=== PATIENT | female | born 1995 | race Caucasian/White ===

== ENCOUNTER 2021-09-05 09:30 | Inpatient (IN) | payer OTHER, SELFPAY ==
[2021-09-05] VITALS (73 sets, daily range): BP systolic 94–137; BP diastolic 39–90; PULSE 62–143; RESP 12–20; TEMP 36.2–37.1; O2SAT 99–100; BMI 38.5
--- NOTE | 2021-09-05 05:02 | LDADM ---
This patient, Nick Vieyra, was admitted to Labor/Delivery/Recovery 106 on 09/05/21 at 05:02. Plans for labor, pain management and were discussed with patient. Patient/family oriented to hospital policies and general routines including ID bracelet, bed and alarms, visiting hours, pain management, procedures, bathroom and other care routines, personal items, smoking policy, room service/diet and guest tray routines, security routines, and visiting hours. Patient/Family are encouraged to report perceived risks to care and to ask questions if they do not understand what they are told or what they should do. See OBIX for further documentation.
[2021-09-05 05:50] LABS: Basophils Percent Auto 0.1 % (0.2-1.2); Eosinophils Percent Auto 0.3 % (0-4.4); Hematocrit 34.8 % (37.0-47.0); Hemoglobin 11.7 g/dL (12.0-15.0); Immature Granulocyte Absolute 0.04 K/mm3 (0.00-0.031); Immature Granulocyte Percent A 0.5 % (0-0.5); Lymphocytes Absolute Auto 1.48 K/mm3 (0.9-3.2); Lymphocytes Percent Auto 16.9 % (18.3-44.2); Mean Corpuscular HGB Conc 33.6 g/dl (32-36); Mean Corpuscular Volume 86.1 fl (80-100); Mean Platelet Volume 10.1 fl (7.4-10.4); Monocytes Absolute Auto 0.6 K/mm3 (0.1-0.6); Monocytes Percent Auto 7.1 % (2.6-8.5); Neutrophils Absolute Auto 6.6 K/mm3 (1.3-6.7); Neutrophils Percent Auto 75.1 % (45.5-73.1); Platelet Count Result 226 k/mm3 (150-375); Red Blood Count 4.04 M/mm3 (4.2-5.4); Red Cell Distribution Width 13.6 % (11.5-14.5); White Blood Count 8.8 K/mm3 (4.5-10.0)
[2021-09-05] MEDS: LACTATED RINGERS 1,000 ML 125 ML IV CONT ×2 (05:55→11:00)
[2021-09-05] MEDS: OXYTOCIN 30 UNITS/NS 500 ML 30 UNITS/500 ML BAG IV CONT (05:57)
--- NOTE | 2021-09-05 09:42 | WPDOBADMIT ---
Obstetrics - Admit Note Admission Note: record reviewed. No pertinent additions to the history and/or any subsequent changes in the physical findings that are not consistent with the expected course of the were found. Additions to the history and/or subsequent changes in the physical findings follow. None.
--- NOTE | 2021-09-05 09:43 | PM.IMHP ---
H&P: HPI History of Present Illness Date/Time: 09/05/21 09:43 26-year-old 4 para 3003 presents for induction labor. This is elective induction of labor. 39+ weeks at this time. Three prior vaginal deliveries difficulty. This course has been without abnormality as well. Records are on the chart. Chief Complaint: Review of Systems Review of Systems: All systems reviewed & are unremarkable except as noted in HPI and below PMFSH Past Medical History Medical History Hypothyroid PCOS (polycystic ovarian syndrome) Family History Family History Mother Diabetes mellitus Father Diabetes mellitus Grandparent Hypertension Social History Social History Smoking status: Never smoker Second hand tobacco smoke exposure: No Alcohol intake: never Substance use: never Substance use type: does not use Additional living arrangements comments: spouse Gender identity (if verbalized by the patient): Female Sexual Orientation (if Verbalized by the Patient): Straight or Heterosexual Spiritual care concerns: No Meds Home Medications and Allergies Home Medications Medication Instructions Recorded Confirmed Type vitamins-iron fumarate 65 1 tablet PO DAILY 06/19/21 09/05/21 History mg iron-folic acid 1 mg tablet Allergies Allergy/AdvReac Type Severity Reaction Status Date / Time No Known Allergies Allergy Unknown Verified 09/04/21 17:50 Vital Signs Vital Signs - 24 hr 09/05/21 05:27 09/05/21 05:31 09/05/21 05:46 Temperature Pulse Rate 143 H 123 H 104 H Blood Pressure 94/39 L 108/59 L 101/62 09/05/21 06:01 09/05/21 06:16 09/05/21 06:30 Temperature 98.7 F Pulse Rate 94 97 Blood Pressure 111/69 109/73 09/05/21 06:31 09/05/21 07:01 09/05/21 07:31 Temperature Pulse Rate 114 H 89 77 Blood Pressure 98/57 L 106/63 122/78 09/05/21 08:00 09/05/21 08:01 09/05/21 09:01 Temperature 97.9 F Pulse Rate 86 88 Blood Pressure 115/75 131/79 09/05/21 09:31 Temperature Pulse Rate 79 Blood Pressure 113/64 Exam Const: General: cooperative, healthy appearing and comfortable Resp: Effort & Inspection: normal respiratory effort Auscultation: clear to auscultation bilaterally Cardio: Rate: regular rate Rhythm: regular rhythm GI: Auscultation: normal bowel sounds : External Female Exam: normal external appearance Speculum Exam - Vagina: normal appearance of the vagina Bimanual exam- vagina & uterus: enlarged ( Fundal height 39cm. heart tone 120-140 and reactive) Manual OB Exam: dilated 3 cm, effaced 50% and station -2 Amniotic Fluid: clear H&P: Results Labs Labs: Short CBC 09/05/21 Range/Units 05:41 WBC 8.8 (4.5-10.0) K/mm3 Hgb 11.7 L (12.0-15.0) g/dL Hct 34.8 L (37.0-47.0) % Plt Count 226 (150-375) k/mm3 Assessment and Plan Assessment and plan (1) 39 weeks gestation of : Code(s): Z3A.39 - 39 weeks gestation of Status: Acute (2) Encounter for elective induction of labor: Code(s): Z34.90 - Encounter for supervision of normal , unspecified, unspecified trimester Status: Acute Additional Plan plan for amniotomy (clear fluid ) and Pitocin as needed. At this point patient does not desire epidural will manage this according to patient need.
--- NOTE | 2021-09-05 09:45 | WPDANESEPPF ---
Anes - Initial Pre Proc Eval Procedure: Operation Date: 09/05/21 09:30 Proposed Procedures p Section - Abram Christensen MD Date/Time: 09/05/21 09:45 Surgeon: Abram Christensen MD Pre Op Diagnosis: Induction of labor Patient Data Age: 26 Gender: F Height: 1.65 m Weight: 105 kg Last Vital Signs Temp 36.6 C 09/05/21 08:00 Pulse 79 09/05/21 09:31 BP 113/64 09/05/21 09:31 Allergies Allergy/AdvReac Type Severity Reaction Status Date / Time No Known Allergies Allergy Unknown Verified 09/04/21 17:50 Home Medications Medication Instructions Recorded Confirmed Type vitamins-iron fumarate 65 1 tablet PO DAILY 06/19/21 09/05/21 History mg iron-folic acid 1 mg tablet Laboratory Tests 09/05/21 09/05/21 09/05/21 05:41 05:41 05:41 WBC 8.8 K/mm3 K/mm3 (4.5-10.0) RBC 4.04 M/mm3 L M/mm3 (4.2-5.4) Hgb 11.7 g/dL L g/dL (12.0-15.0) Hct 34.8 % L % (37.0-47.0) MCV 86.1 fl fl (80-100) MCH 29.0 pg pg (26-34) MCHC 33.6 g/dl g/dl (32-36) RDW 13.6 % % (11.5-14.5) Plt Count 226 k/mm3 k/mm3 (150-375) MPV 10.1 fl fl (7.4-10.4) Immature Gran % (Auto) 0.5 % % (0-0.5) Neut % (Auto) 75.1 % H % (45.5-73.1) Lymph % (Auto) 16.9 % L % (18.3-44.2) Daniels % (Auto) 7.1 % % (2.6-8.5) Eos % (Auto) 0.3 % % (0-4.4) Baso % (Auto) 0.1 % L % (0.2-1.2) Lymph # (Auto) 1.48 K/mm3 K/mm3 (0.9-3.2) Daniels # (Auto) 0.6 K/mm3 K/mm3 (0.1-0.6) Eos # (Auto) 0.0 K/mm3 K/mm3 (0-0.3) Baso # (Auto) 0.0 K/mm3 K/mm3 (0.0-0.1) Abs Immat Gran (auto) 0.04 K/mm3 H K/mm3 (0.00-0.031) Absolute Neuts (auto) 6.6 K/mm3 K/mm3 (1.3-6.7) Absolute Nucleated RBC 0.0 K/mm3 K/mm3 (0.0-0.012) Nucleated RBC % 0.0 % % (0.0-0.2) RPR Pending Blood Type B Positive Antibody Screen Negative Patient hx anesthesia problems: none Family hx anesthesia problems: none Results Review: All pre-operative results and documents have been reviewed as part of the pre-operative evaluation. [facility] Past Medical History Medical History Hypothyroid PCOS (polycystic ovarian syndrome) Family History Family History Mother Diabetes mellitus Father Diabetes mellitus Grandparent Hypertension Social History Social History Smoking status: Never smoker Second hand tobacco smoke exposure: No Alcohol intake: never Substance use: never Substance use type: does not use Additional living arrangements comments: spouse Gender identity (if verbalized by the patient): Female Sexual Orientation (if Verbalized by the Patient): Straight or Heterosexual Spiritual care concerns: No Anes - Eval Final PreProcedure Day of Procedure 09/05/21 09:45 Patient weight: obese Heart: regular rate and rhythm Lungs: clear to auscultation and normal air movement Airway: Mallampati scale class II Neurological: alert and oriented Last oral intake: >/= 8 hours ASA classification: II Emergent: yes Anesthetic plan: proceed Anesthesia type and monitoring: general ETT and standard monitoring Results Review: All pre-operative results and documents have been reviewed as part of the pre-operative evaluation. Informed Consent: The patient's anesthetic plan and its attendant risks and benefits were discussed with the patient/family/POA. Questions were solicited and answers provided to the satisfaction of the patient/family/POA.
[2021-09-05] MEDS: ceFAZolin 2 GM/D5W 50 ML 2 GM/50 ML BAG IVPB (09:53)
[2021-09-05] MEDS: KETOROLAC 30 MG/ML VIAL (*BKC) 15 MG IV PUSH (10:23)
--- NOTE | 2021-09-05 10:32 | PM.OBPRVD ---
OB - Delivery Note Procedure Procedure: Procedures Operation Date: 09/05/21 09:30 <No data on this case meets the specified criteria> Events: Other Intrapartal Events: Umbilical Cord Prolapse Induction method: AROM and Per Pitocin Protocol Delivery monitor: External FHT Route of delivery: Prior to decision for section, ACOG/SM labor guidelines were considered and discussed with the patient and staff. Decision made to proceed with the section.: No Specimen: No Quantitative Blood Loss (ml): 1,325 Anesthesia type: General Disposition: PACU Narrative: Patient prepped draped usual manner for this procedure. After general anesthesia had been induced Pfannenstiel incision was made this was carried down to the fascia extended bilaterally the length of the skin incision. Superiorly and inferiorly dissected away from the rectus muscles. Peritoneum was readily entered. Bladder flap was developed without difficulty. Uterus was scored and vertex was delivered. Cord was clamped and cut baby was passed off the shower enclosure installer in attendance and the uterus was exteriorized and the placenta was removed. Membranes and clots removed from the uterus as well and this was then closed using 0 Monocryl in a running interlocking manner with good approximation hemostasis noted. All subfascial tissue was noted be hemostatic and the fascia was then approximated using 0 Monocryl in a running manner from the left angle to the midline and the right angle to the midline. Subcutaneous tissue was irrigated approximated 0 plain suture and janet were used to approximate skin edges. Patient was sent to recovery room in stable condition. [place] Baby Weeks of gestation at delivery: 39 gender: Female Weight (pounds): 8 Weight (ounces): 4 presentation: vertex Placenta delivery description: Manual Removal Cord Vessel Description: 3 Vessels score one minute: 8 score five minutes: 9 AMG Delivery Billing Delivery Delivery: Delivery Charge
[2021-09-05] MEDS: MORPHINE SULFATE INJ (*CRX) 10 MG/ML AMP 2 MG IV PUSH ×5 (11:07→12:37)
[2021-09-05] MEDS: OXYTOCIN 30 UNITS/NS 500 ML 30 UNITS/500 ML BAG 125 UNITS IV CONT (11:15)
--- NOTE | 2021-09-05 12:57 | PC.NURSE ---
Patient transferred to post room #1257 via stretcher. Support person present. Oriented to unit, room, information board, rooming in, admission packet and security measures. Patient verbalizes understanding.
[2021-09-05] MEDS: MORPHINE SULFATE PCA (*CRX) 30 MG/30 ML SYR IV CONT (13:11)
[2021-09-05 14:15] LABS: Rapid Plasma Reagin Non-Reactive (NonReactive)
--- NOTE | 2021-09-05 15:11 | PC.NURSE ---
1500 - Introductions were made and consulted with patient to assess needs related to . Mother led conversation with her experience with feeding baby so far. Mother works well with her infant and has infant latched to the left breast with cradle positioning. Reviewed working with , breast, nipples and how to protect the nipples with an optimal deep latch, good positioning, and good hand washing. Encouraged understanding the benefits of skin to skin, responding to feeding cues, frequencies of feeding 8-12 times in 24 hours (approximately 2-3 hours), duration of feedings, milk production, intake/output feeding sheet and signs of adequate intake encouraging swallowing at the breast. Reviewed positioning and alignment, supporting breast, off-centered (asymmetrical latch) and leading with the chin with big open wide gape. Mother detached infant to assess her nipple and it was misshaped. latched optimally to the left breast in cradle position with mother working independently with her fourth . Mother states it is a bit more challenging after a but is learning to manage. Education given to mother of how to visualize suck/swallow ratios and audible swallowing is heard while drinking at the breast. was able to maintain latch without discomfort to mother. Nipple care reviewed with optimal latch and good positioning. Resources used to facilitate learning were used from the visual handout. Mother voiced understanding of the education shared, calling for assistance if the infant does not latch or if there is discomfort with . Reported to the primary RN.
[2021-09-05] MEDS: SIMETHICONE 80 MG TAB.CHEW PO (16:48)
[2021-09-05] MEDS: KETOROLAC 30 MG/ML VIAL (*BKC) IV PUSH (16:48)
[2021-09-05] MEDS: DOCUSATE SODIUM 100 MG CAPSULE PO (16:48)
[2021-09-05] MEDS: DEXTROSE 5%/0.45% SOD CHL 1,000 ML 125 ML IV CONT (16:52)
[2021-09-05] MEDS: KCL 20 MEQ/D5/0.45% SOD CHL 1,000 ML 125 ML IV CONT (23:33)
[2021-09-06] MEDS: KETOROLAC 30 MG/ML VIAL (*BKC) IV PUSH (04:44)
[2021-09-06] MEDS: HYDROcodone/acetaminophen (*CRX) 10-325 MG TABLET 1 TAB PO ×2 (04:44→12:37)
[2021-09-06 04:45] VITALS: BP 101/58; PULSE 81; RESP 16; TEMP 37; O2SAT 100
[2021-09-06 05:54] LABS: Basophils Percent Auto 0.2 % (0.2-1.2); Eosinophils Percent Auto 0.2 % (0-4.4); Hemoglobin 9.3 g/dL (12.0-15.0); Immature Granulocyte Absolute 0.04 K/mm3 (0.00-0.031); Immature Granulocyte Percent A 0.4 % (0-0.5); Lymphocytes Absolute Auto 1.58 K/mm3 (0.9-3.2); Lymphocytes Percent Auto 14.5 % (18.3-44.2); Mean Corpuscular Hemoglobin 29.2 pg (26-34); Mean Platelet Volume 10.3 fl (7.4-10.4); Monocytes Percent Auto 9.1 % (2.6-8.5); Neutrophils Absolute Auto 8.3 K/mm3 (1.3-6.7); Neutrophils Percent Auto 75.6 % (45.5-73.1); Platelet Count Result 193 k/mm3 (150-375); Red Blood Count 3.19 M/mm3 (4.2-5.4); Red Cell Distribution Width 14.2 % (11.5-14.5); White Blood Count 10.9 K/mm3 (4.5-10.0)
[2021-09-06 07:47] VITALS: BP 109/59; PULSE 74; RESP 16; TEMP 36.5; O2SAT 97
[2021-09-06] MEDS: DOCUSATE SODIUM 100 MG CAPSULE PO ×2 (09:06→17:23)
[2021-09-06] MEDS: POLYSACCHARIDE IRON COMPLEX 150 MG CAPSULE PO ×2 (09:06→17:23)
[2021-09-06] MEDS: SIMETHICONE 80 MG TAB.CHEW PO ×3 (09:07→20:37)
[2021-09-06] MEDS: MULTIVIT/MIN/PREN/FOL AC/IRON TABLET 1 TAB PO (09:07)
[2021-09-06] MEDS: HYDROcodone/acetaminophen (*CRX) 5-325 MG TABLET 1 TAB PO ×3 (09:08→20:37)
[2021-09-06] MEDS: LANOLIN (LANSINOH) 7.5 GM CREAM 1 APPLIC TOPICAL (09:09)
--- NOTE | 2021-09-06 10:22 | WPDANLDPN2 ---
Anes-Prog Note L&D Date/Time: 09/06/21 10:22 Comfortable throughout: section Neuro status: Neuro function grossly intact. Cardiovascular status: normal Respiratory status: normal Airway patency: baseline Mental status: baseline Post-Op hydration status: normal Vital Signs: Last Vital Signs Temp 36.5 C 09/06/21 07:47 Pulse 74 09/06/21 07:47 Resp 16 09/06/21 07:47 BP 109/59 L 09/06/21 07:47 Pulse Ox 97 09/06/21 07:47 Pain score (VAS): 3 I/O: Intake & Output 09/05/21 09/06/21 09/06/21 23:59 07:59 15:59 Intake Total 1800 648 800 Output Total 2100 1300 600 Balance -300 -652 200 Post-procedural complaints: none Patient feedback: Patient satisfied with anesthetic care.
[2021-09-06] MEDS: IBUPROFEN 600 MG TABLET PO ×2 (12:36→20:36)
--- NOTE | 2021-09-06 16:25 | PM.OBDSVD ---
DS: Admitting Diagnosis Discharge Date 09/08/2021 Admitting Diagnosis OB - DS: Summary OB Procedures : None OB Procedures Intrapartum: OB Procedures: : None Peripartum Data Procedures: Procedures Operation Date: 09/05/21 09:30 Actual Procedure Side Surgeon p Section Not Applicable Abram Christensen MD Time Spent with Patient Time attestation: Total time spent providing and/or coordinating discharge services: DS: Data Data Completed and Pending Labs on day of discharge: Labs from last 24 hours 09/06/21 04:56 WBC 10.9 H RBC 3.19 L Hgb 9.3 L Hct 30.0 L MCV 94.0 D MCH 29.2 MCHC 31.0 L RDW 14.2 Plt Count 193 MPV 10.3 Immature Gran % (Auto) 0.4 Neut % (Auto) 75.6 H Lymph % (Auto) 14.5 L [place] % (Auto) 9.1 H Eos % (Auto) 0.2 Baso % (Auto) 0.2 Lymph # (Auto) 1.58 [place] # (Auto) 1.0 H Eos # (Auto) 0.0 Baso # (Auto) 0.0 Abs Immat Gran (auto) 0.04 H Absolute Neuts (auto) 8.3 H Absolute Nucleated RBC 0.0 Nucleated RBC % 0.0 Discharge Plan Discharge Discharging Clinician: Abram Christensen Anticipated Discharge Date/Time: 09/08/21 10:00 Patient Disposition: Home, Self-Care Activity: as tolerated Diet: as tolerated Wound Care Instructions: incision open to air Discharge Instructions: office friday/friday for staple removal Patient Instructions: Antibiotic Form Stand Alone Forms: General Discharge Information Follow-up/Referrals: Abram Christensen MD [Physician] - 2 Weeks Discharge Medications: New hydrocodone-acetaminophen 5-325 mg Tablet 1 tablet PO Q3H PRN (Reason: Moderate Pain (4-6)) Qty: 20 RF: 0 ibuprofen 600 mg Tablet 600 mg PO Q6H PRN (Reason: Cramping) Qty: 20 RF: 0 Continued vit-iron fum-folic ac 65 mg iron- 1 mg tablet 1 tablet PO DAILY RF: 0 Date of admission: 09/05/21 05:02 Primary Care Provider: Jass,Denise Admitting Provider: Abram Christensen Attending physician on admission: Abram Christensen Condition: Stable
[2021-09-06 20:50] VITALS: BP 118/70; PULSE 89; RESP 16; TEMP 36.8; O2SAT 99
[2021-09-07] MEDS: HYDROcodone/acetaminophen (*CRX) 5-325 MG TABLET 1 TAB PO ×3 (00:03→11:12)
[2021-09-07] MEDS: SIMETHICONE 80 MG TAB.CHEW PO ×6 (00:03→20:21)
[2021-09-07] MEDS: IBUPROFEN 600 MG TABLET PO ×3 (03:15→20:15)
[2021-09-07] MEDS: MULTIVIT/MIN/PREN/FOL AC/IRON TABLET 1 TAB PO (06:55)
[2021-09-07] MEDS: DOCUSATE SODIUM 100 MG CAPSULE PO ×2 (06:55→20:21)
[2021-09-07] MEDS: HYDROcodone/acetaminophen (*CRX) 10-325 MG TABLET 1 TAB PO ×3 (06:55→20:15)
[2021-09-07] MEDS: POLYSACCHARIDE IRON COMPLEX 150 MG CAPSULE PO ×2 (06:55→20:23)
[2021-09-07 08:32] VITALS: BP 116/71; PULSE 80; RESP 17; TEMP 36.3
[2021-09-07 09:00] VITALS: BP 126/72; PULSE 67; PULSE 80; RESP 17; RESP 20; TEMP 36.9; O2SAT 99
[2021-09-07 20:15] VITALS: BP 116/77; PULSE 80; RESP 18; TEMP 36.9; O2SAT 100
[2021-09-08] MEDS: HYDROcodone/acetaminophen (*CRX) 5-325 MG TABLET 1 TAB PO ×3 (00:29→12:17)
[2021-09-08 03:45] VITALS: BP 111/72; PULSE 77; RESP 18; TEMP 36.5; O2SAT 100
[2021-09-08] MEDS: IBUPROFEN 600 MG TABLET PO (06:00)
[2021-09-08 08:30] VITALS: BP 118/72; PULSE 83; RESP 18; TEMP 36.6; O2SAT 100
[2021-09-08] MEDS: POLYSACCHARIDE IRON COMPLEX 150 MG CAPSULE PO (08:55)
[2021-09-08] MEDS: MULTIVIT/MIN/PREN/FOL AC/IRON TABLET 1 TAB PO (08:55)
[2021-09-08] MEDS: DOCUSATE SODIUM 100 MG CAPSULE PO (08:55)
--- NOTE | 2021-09-08 12:10 | PM.OBPNVD ---
OB - PN: Subj Subjective Date/time seen: 09/08/21 12:10 Patient comments: no complaints and pain well controlled baby status: doing well OB - PN: Obj Data Labs CBC & Chem 7: 09/06/21 04:56 OB - PN A/P Plan day: 3 Plan: routine care, discharge home and other (Friday at office as per plan) Time Spent With Patient Time: Total time spent is greater than 50% in coordination of care (as documented) at patient's floor/unit and/or counseling patient: Exam Narrative: inc c/d/i : Bimanual exam- vagina & uterus: other (Uterus firm, nt @U)
[2021-09-10 10:38] VITALS: BP 129/76; PULSE 88; RESP 16; TEMP 36.8; O2SAT 100
--- NOTE | 2021-09-13 08:08 | PM.OBDSVD ---
DS: Admitting Diagnosis Discharge Date 09/08/21 Admitting Diagnosis OB - DS: Summary OB Procedures : None OB Procedures Intrapartum: OB Procedures: : None Peripartum Data Procedures: Procedures Operation Date: 09/05/21 09:30 Actual Procedure Side Surgeon p Section Not Applicable Abram Christensen MD Time Spent with Patient Time attestation: Total time spent providing and/or coordinating discharge services: Discharge Plan Discharge Consulting providers: Cassandra Blake ; Earnest Yanez Discharging Clinician: Abram Christensen Anticipated Discharge Date/Time: 09/08/21 10:00 Patient Disposition: Home, Self-Care Activity: as tolerated Diet: as tolerated Wound Care Instructions: incision open to air Discharge Instructions: Education: Mom and Baby Guide Given to: Mother Follow-Up: Call your delivering provider's office for an appointment to be seen in: 2 Weeks Mom and baby [facility] for the follow-up appointment. Appointment Date/Time: September 10, 2021 at 10:00 am What to expect at your follow-up visit: Physical Assessment Call [phone] if you are unable to keep your appointment time. BREAST CARE: * Wear a snug supportive bra. * For engorgement discomfort: Breast Feeding: * Apply warm moist washcloths * Express milk as needed to relieve engorgement * Wear loose clothing * For sore nipples: * Identify correct latch-on * Apply warm moist washcloths before and after nursing * Air dry nipples after nursing * May apply Lansinoh cream to nipples ABDOMINAL INCISION: (if applicable) * Allow incision to air dry * Do NOT use lotions for powders on your incision * When showering, allow soap and water to run over the incision, but do not wash incision EPISIOTOMY/PERINEAL CARE: * Until bleeding stops, use your ria bottle after urinating * Change your pad frequently throughout the day * No tub baths until seen by your physician - You may shower ACTIVITY: * Rest as much as possible. * Do not exercise or lift anything heavier than your baby (such as laundry or other children.) * Avoid stairs or driving as much as possible. * Do not put anything into the vagina. No douching, tampons, or sexual activity until seen by physician. NOTIFY PHYSICIAN IF YOU HAVE ANY QUESTIONS OR IF ANY OF THE FOLLOWING SYMPTOMS OCCUR: * If your incision becomes red, swollen, or more painful than what you have experienced in the hospital. * If your vaginal bleeding becomes foul smelling. * If your vaginal bleeding becomes more heavy than a period or if your bleeding changes from pink to bright red. However, you may pass an occasional walnut-sized clot once or twice for the first week . * If you experience a sharp, shooting pain in you calves. * If you discover a hard, reddened area on your breast or if you experience flu-like symptoms. DIET: * Eat regular, well-balanced meals. * Drink plenty of fluids daily. If , drink to thirst.office friday/friday for staple removal Stand Alone Forms: General Discharge Information Follow-up/Referrals: Abram Christensen MD [Physician] - 2 Weeks Discharge Medications: New hydrocodone-acetaminophen 5-325 mg Tablet 1 tablet PO Q3H PRN (Reason: Moderate Pain (4-6)) Qty: 20 RF: 0 ibuprofen 600 mg Tablet 600 mg PO Q6H PRN (Reason: Cramping) Qty: 20 RF: 0 Continued vit-iron fum-folic ac 65 mg iron- 1 mg tablet 1 tablet PO DAILY RF: 0 Date of admission: 09/05/21 09:30 Primary Care Provider: Jose JDenise Admitting Provider: Abram Christensen Attending physician on admission: Abram Christensen Condition: Stable
== END 2021-09-08 13:00 | disposition home or self-care (01) | DRG 540 ==
LOC: ANHOB2 09-06 16:26 → ANHLDR 09-07 11:55 → ANHOB2 09-07 11:55
PROVIDERS: Admitting Provider Obstetrics & Gynecology; PCP Nurse Practitioner Adult Health; Visit Provider Obstetrics & Gynecology
PROC: 10D00Z1 Extraction of Products of Conception, Low, Open Approach (ICD-10-PCS; CPT 59514; principal; 2021-09-05 09:30)
DX: O99.284 Endocrine, nutritional and metabolic diseases complicating childbirth (principal); Z37.0 Single live birth; Z3A.39 39 weeks gestation of pregnancy; O69.0XX0 Labor and delivery complicated by prolapse of cord, not applicable or unspecified; O36.8390 Maternal care for abnormalities of the fetal heart rate or rhythm, unspecified trimester, not applicable or unspecified; E03.9 Hypothyroidism, unspecified; E28.2 Polycystic ovarian syndrome
CPT/HCPCS: 36415; 85025; 86592; 86850; 86900; 86901; A9270; J0131; J0330; J0690; J1885; J2270; J2405; J2590; J2704; J3010; J3480; J7120

== ENCOUNTER 2021-10-02 12:01 | Outpatient (CLI) | payer OTHER, SELFPAY ==
--- NOTE | 2021-10-02 12:14 | ECG_ITS ---
Measurements Intervals [place] Rate: 66 P: 58 MD: 162 QRS: 48 QRSD: 94 T: 35 QT: 387 QTc: 405 Interpretive Statements SINUS RHYTHM INCOMPLETE RIGHT BUNDLE BRANCH BLOCK BORDERLINE ST-T WAVE ABNORMALITY- ANTERIOR LEADS BASELINE ARTIFACT- III BORDERLINE ECG Electronically Signed On 10-02-2021 12:22:37 CDT by Kvng Turner D.O.
== END 2021-10-02 12:02 | disposition home or self-care (01) ==
LOC: ANHCARD 12:04
PROVIDERS: PCP Nurse Practitioner Adult Health; Visit Provider Obstetrics & Gynecology
DX: R00.0 Tachycardia, unspecified (principal); I45.10 Unspecified right bundle-branch block
CPT/HCPCS: 93005

== ENCOUNTER 2021-10-06 13:19 | Outpatient (CLI) | payer OTHER, SELFPAY ==
[2021-10-06 13:41] LABS: Hematocrit 38.2 % (37.0-47.0); Mean Corpuscular HGB Conc 31.4 g/dl (32-36); Mean Corpuscular Hemoglobin 27.3 pg (26-34); Mean Platelet Volume 9.3 fl (7.4-10.4); Platelet Count Result 280 k/mm3 (150-375); Red Blood Count 4.39 M/mm3 (4.2-5.4); Red Cell Distribution Width 14.3 % (11.5-14.5); White Blood Count 6.3 K/mm3 (4.5-10.0)
[2021-10-06 14:25] LABS: Thyroid Stimulating Hormone 0.586 uIU/mL (0.465-4.680)
== END 2021-10-06 13:20 | disposition home or self-care (01) ==
LOC: ANHLAB 13:20
PROVIDERS: PCP Nurse Practitioner Adult Health; Visit Provider Obstetrics & Gynecology
DX: R00.0 Tachycardia, unspecified (principal)
CPT/HCPCS: 36415; 84443; 85027